=== PATIENT | female | born 1940 | race Caucasian/White ===

== ENCOUNTER → 2018-04-26 | Outpatient (REF) | payer MEDICARE | END | disposition home or self-care (01) | LOC: STRESS 14:10 → NUCMED 15:45 | PROVIDERS: ATTEND Internal Medicine | DX: I70.209 Unspecified atherosclerosis of native arteries of extremities, unspecified extremity (principal); R00.2 Palpitations; I25.119 Atherosclerotic heart disease of native coronary artery with unspecified angina pectoris; I50.32 Chronic diastolic (congestive) heart failure | CPT/HCPCS: A9502; J0706; J2785 ==